=== PATIENT | female | born 1955 | race Caucasian/White ===

== ENCOUNTER 2018-07-10 19:33 | Emergency (ER) | payer BC ==
[~2018-07-10] VITALS: Ht 160 cm; Wt 68.9 kg
[2018-07-10] MEDS ORDERED: AMOXICILLIN500 MG (19:49)
[2018-07-10] MEDS ORDERED: ASA81 MG (19:49)
[2018-07-10] MEDS ORDERED: DILTIAZEM 30 MG (19:49)
[2018-07-10] MEDS ORDERED: PRELONE 15MG/5ML (19:51)
== END 2018-07-10 21:27 | disposition home or self-care (01) ==
LOC: ER 19:33
DX: B34.9 Viral infection, unspecified (principal); J11.1 Influenza due to unidentified influenza virus with other respiratory manifestations